=== PATIENT | female | born 1985 | race Caucasian/White ===

== ENCOUNTER 2017-01-18 03:25 | Emergency (ER) | payer OTHER ==
[2017-01-18] MEDS ORDERED: COMPAZINE IV ONE (03:48)
[2017-01-18] MEDS ORDERED: BENADRYL IV ONE (03:49)
[2017-01-18] MEDS ORDERED: TORADOL IV ONE (03:49)
[2017-01-18] MEDS ORDERED: NS 500 ML IV ONE (03:50)
--- NOTE | 2017-01-18 03:55 | PROVIDER DOCUMENTATION ---
HPI-Neurological Disorder - General Chief Complaint: Headache Stated Complaint: MCLEOD, N/V Time Seen by Provider: 01/18/17 03:44 Source: patient, family Allergies/Adverse Reactions: Patient Allergies Allergy/AdvReac Type Severity Reaction Status Date / Time No Known Allergies Allergy Verified 01/18/17 03:34 Home Medications: Home Medication List Medication Instructions Recorded Confirmed Last Taken Type Butalb/APAP/Caffeine [Fioricet] 1 each PO Q4H PRN PRN 01/18/17 01/18/17 02:00 History Rizatriptan [Maxalt] 10 mg PO PRN PRN 01/18/17 01/18/17 01/18/17 02:00 History Topiramate [Topamax] 50 mg PO BID 01/18/17 01/18/17 01/17/17 21:00 History - History of Present Illness-Neuro Nature of Presenting Problem: pt who has hx of migraines states that she woke up about 2 hours ago with a severe right sided throbbing headache that is typical of her migraines. She is nauseous but no vomiting. Photophobia. No numbness or tingling. No fever or recent illness. She tried her maxalt without help Review of Systems - Adult - REVIEW OF SYSTEMS - ADULT Constitutional: denies: chills, fever Eyes: reports: other (photophobia). denies: discharge Ears, Nose, Mouth & Throat: denies: ear pain, sinus problem, throat swelling Cardiovascular: denies: chest pain Respiratory: denies: cough, shortness of breath Gastrointestinal: reports: nausea. denies: abdominal pain, diarrhea, vomiting Genitourinary: denies: dysuria, frequency, flank pain Musculoskeletal: denies: muscle aches Integumentary: denies: rash Neurological: reports: headache/migraines. denies: numbness, paresthesia, slurred speech Psychiatric: reports: no symptoms reported Endocrine: reports: no symptoms reported Hematologic/Lymphatic: reports: no symptoms reported Allergic/Immunologic: reports: no symptoms reported All Other Systems: Reviewed and Negative Past History - Adult - PAST MEDICAL HISTORY-ADULT Review of Records: reports: Old Records Reviewed, Nursing Assessment Review, Medications Reviewed, Social history reviewed & non-contributory. - PRIOR SURGERIES/PROCEDURES Surgical/Procedure History: reports: none - FAMILY HISTORY Family History: reviewed, not pertinent - SOCIAL HISTORY Smoking: denies Substance Use: none/never Living Situation: family Physical Exam- Neurological - Physical Exam-Neuro Initial Vital Signs Reviewed: Yes General Appearance: appears well, alert, no apparent distress Eye Exam: bilateral eye: PERRL, EOMI HENMT: normocephalic/atraumatic Head Injury: no evidence of injury Neck: non-tender, full range of motion, supple, normal inspection. negative: lymphadenopathy, meningismus Respiratory: chest non-tender, lungs clear, normal breath sounds, no pleuratic chest pain, no respiratory distress, no accessory muscle use Cardiovascular: regular rate, rhythm, no murmur Abdominal Exam: normal bowel sounds, non tender, soft, no organomegaly, no pulsatile mass encapsulator Exam: normal hearing, normal speech, PERRL Motor/Sensory: no motor deficit, no sensory deficit Neurologic: encapsulator II-XII nml as tested, grossly normal, no motor/sensory deficits Integumentary: normal color, normal turgor, warm/dry Psych/Mental Status: normal mood/affect, normal thought content, normal thought process, oriented x 3 Progress - REASSESSMENT Reassessment #1 Time Reassessed: 04:22 (pain has gone from a 10 to 7) Status: improving Reassessment #2 Time Reassessed: 05:12 (pt was asleep, when awakened reports 2 ) Status: improving Departure - Departure Time of Disposition Order: 05:13 DIAGNOSIS: Migraine Qualifiers: Migraine type: without aura Status migrainosus presence: without status migrainosus Intractability: not intractable Qualified Code(s): G43.009 - Migraine without aura, not intractable, without status migrainosus Disposition: HOME 01 Certified Medical Emergency: Emergent Condition: Good Additional Instructions: ED Follow Up Instructions: You have been treated by a care provider in the Emergency Department. These instructions are being provided to you so you can have an understanding of how to care for yourself upon discharge. Upon discharge from the Emergency Department, you are responsible for making arrangements for follow-up care by a physician of your choice. Take all prescribed medications as directed. Return to the Emergency Department immediately for any new or worsening symptoms. You may call the Physician Referral phone number at [phone] to obtain a list of Physicians who are taking new patients.
[2017-01-18] MEDS ORDERED: DILAUDID IV ONE (04:22)
[2017-01-18 05:30] VITALS: BP 112/61
== END 2017-01-18 05:30 | disposition home or self-care (01) ==
LOC: ED 03:25
DX: G43.009 Migraine without aura, not intractable, without status migrainosus (principal); R51 Headache; R11.0 Nausea; H53.149 Visual discomfort, unspecified
CPT/HCPCS: J0780; J1170; J1200; J1885; J7040